=== PATIENT | female | born 2000 | race Caucasian/White ===

== ENCOUNTER 2019-04-16 22:29 | Emergency (ER) | payer MEDICAID, OTHER ==
[~2019-04-16] VITALS: Ht 152.4 cm; Wt 46.4 kg
[2019-04-16 22:56] VITALS: Ht 152.4 cm; Wt 46.4 kg
[2019-04-17] MEDS ORDERED: LIDOCAINE/MYLANTA 40 ML BTL PO STA (01:06)
[2019-04-17] MEDS ORDERED: morphine 4 MG/ML VIAL IV STA (01:06)
[2019-04-17] MEDS ORDERED: SOD CHLORIDE 0.9% 1,000 ML IV STA (01:06)
[2019-04-17] MEDS ORDERED: KETOROLAC 15 MG INJ IV STA (01:06)
[2019-04-17] MEDS ORDERED: SOD CHLORIDE 0.9% 100 ML ONE (02:52)
[2019-04-17] MEDS ORDERED: IOHEXOL 300MG/ML 150 ML BTL ONE (02:52)
[2019-04-17] MEDS ORDERED: IBUP-1561 PO (03:31)
[2019-04-17 03:39] VITALS: BP 117/70; PULSE 87; RESP 18
--- NOTE | 2019-04-17 05:33 | ERD ---
ER Documentation Chief Complaint Chief Complaint AP with nausea since Monday HPI 19-year-old female presents to the emergency department complaining of right lower quadrant and right suprapubic pain for the past 5 days. Symptoms are intermittent and rated 5/10 in severity. Associated symptoms include nausea. Patient denies any fevers, diarrhea, vomiting, or other symptoms at this time. ROS All systems reviewed and are negative except as per history of present illness. Medications Home Meds Active Scripts Ibuprofen* (Motrin*) 400 Mg Tab, 400 MG PO Q6, #30 TAB Prov:SARAHY SINGH PA-C 04/17/19 Allergies Allergies: Coded Allergies: No Known Allergy (Unverified , 04/16/19) PMhx/Soc Medical and Surgical Hx: pt denies Medical Hx, pt denies Surgical Hx Hx Alcohol Use: No Hx Substance Use: No Hx Tobacco Use: No FmHx Family History: No diabetes Physical Exam Vitals Vital Signs Date Temp Pulse Resp B/P (MAP) Pulse Ox O2 O2 Flow FiO2 Time Delivery Rate 04/17/19 98.8 87 18 117/70 99 Room Air 03:39 (86) 04/16/19 99.5 95 16 144/88 98 22:56 (106) Physical Exam Const: No acute distress Head: Atraumatic Eyes: Normal Conjunctiva ENT: Normal External Ears, Nose and Mouth. Neck: Full range of motion. No meningismus. Resp: Clear to auscultation bilaterally Cardio: Regular rate and rhythm, no murmurs Abd: Soft, mild tenderness palpation of the right lower quadrant in the right suprapubic region, negative Westfall sign, no rebound tenderness or guarding, non distended. Normal bowel sounds Skin: No petechiae or rashes Ext: No cyanosis, or edema Neur: Awake and alert Psych: Normal Mood and Affect Result Diagram: 04/17/19 0130 04/17/19 0130 Results 24 hrs Laboratory Tests Test 04/17/19 01:30 04/17/19 01:40 White Blood Count 12.8 10^3/ul Red Blood Count 5.27 10^6/ul Hemoglobin 14.8 g/dl Hematocrit 43.4 % Mean Corpuscular Volume 82.4 fl Mean Corpuscular Hemoglobin 28.1 pg Mean Corpuscular Hemoglobin Concent 34.1 g/dl Red Cell Distribution Width 11.9 % Platelet Count 223 10^3/UL Mean Platelet Volume 9.9 fl Immature Granulocytes % 0.400 % Neutrophils % 75.0 % Lymphocytes % 19.1 % Monocytes % 5.1 % Eosinophils % 0.2 % Basophils % 0.2 % Nucleated Red Blood Cells % 0.0 /100WBC Immature Granulocytes # 0.050 10^3/ul Neutrophils # 9.6 10^3/ul Lymphocytes # 2.5 10^3/ul Monocytes # 0.7 10^3/ul Eosinophils # 0.0 10^3/ul Basophils # 0.0 10^3/ul Nucleated Red Blood Cells # 0.0 10^3/ul Prothrombin Time 13.3 Sec Prothrombin Time Ratio 1.0 INR International Normalized Ratio 1.00 Activated Partial Thromboplast Time 31.5 Sec Urine Color YELLOW Urine Clarity SLIGHTLY CLOUDY Urine pH 6.0 Urine Specific [place] 1.033 Urine Ketones 2+ mg/dL Urine Nitrite NEGATIVE mg/dL Urine Bilirubin NEGATIVE mg/dL Urine Urobilinogen 1+ mg/dL Urine Leukocyte Esterase NEGATIVE Mukesh/ul Urine Microscopic RBC 3 /HPF Urine Microscopic WBC 1 /HPF Urine Squamous Epithelial Cells FEW /HPF Urine Mucus MANY /HPF Urine Hemoglobin NEGATIVE mg/dL Urine Glucose NEGATIVE mg/dL Urine Total Protein 1+ mg/dl Sodium Level 143 mmol/L Potassium Level 3.5 mmol/L Chloride Level 106 mmol/L Carbon Dioxide Level 24 mmol/L Anion Gap 13 Blood Urea Nitrogen 12 mg/dl Creatinine 0.58 mg/dl Est Glomerular Filtrat Rate mL/min > 60 mL/min Glucose Level 88 mg/dl Calcium Level 9.7 mg/dl Total Bilirubin 1.6 mg/dl Direct Bilirubin 0.00 mg/dl Indirect Bilirubin 1.6 mg/dl Aspartate Amino Transf (AST/SGOT) 18 IU/L Alanine Aminotransferase (ALT/SGPT) 16 IU/L Alkaline Phosphatase 64 IU/L Total Protein 8.5 g/dl Albumin 5.0 g/dl Globulin 3.50 g/dl Albumin/Globulin Ratio 1.42 Lipase 93 U/L POC Beta HCG, Qualitative NEGATIVE Current Medications Medications Dose Sig/Errol Start Time Status Last (Trade) Ordered Route PRN Stop Time Admin Dose Reason Admin Sodium 1,000 ml @ Q1H STAT 04/17/19 DC 04/17/19 Chloride 1,000 mls/hr IV 01:06 04/17/19 01:40 02:05 Morphine 4 mg ONCE STAT 04/17/19 DC Sulfate IV 01:06 04/17/19 (morphine) 01:08 40 ml ONCE STAT 04/17/19 DC Miscellaneous PO 01:06 04/17/19 Medication 01:08 (Gi Cocktail (2)) Ketorolac 15 mg ONCE STAT 04/17/19 DC Tromethamine IV 01:06 04/17/19 (Toradol) 01:08 Sodium 100 ml @ ud STK-MED 04/17/19 DC 04/17/19 Chloride ONCE .ROUTE 02:52 04/17/19 02:54 02:53 Iohexol 150 ml STK-MED 04/17/19 DC 04/17/19 (Omnipaque ONCE .ROUTE 02:52 04/17/19 02:54 300mg/ ml) 02:53 [place] [address] Radiology Main Line: [phone] DIAGNOSTIC IMAGING REPORT Patient: CHANDAN LAZO : 2000 Age: 19 Sex: F MR #: [id number] DOS: 04/17/19 0106 Ordering MD: SARAHY SINGH PA-C Location: [facility] Room/Bed: PROCEDURE: CT ABDOMEN AND PELVIS WITH INTRAVENOUS CONTRAST CLINICAL INDICATION: Abdominal pain. TECHNIQUE: Contiguous axial imaging was performed through the abdomen and pelvis with 100 cc of Omnipaque-300 intravenous contrast. Coronal and sagittal reformatting was utilized. DICOM images are available. Lack of oral contrast causes limitation of the gastrointestinal tract. CTDIvol: 4.74 mGy mGy. Total Exam DLP: 241.26 mGy.cm mGy-cm. This CT exam was performed using one or more of the following dose reduction techniques: Automated exposure control, adjustment of the mA and/or kV according to patient size, use of iterative reconstruction technique. COMPARISON: None. FINDINGS: VISUALIZED LUNG BASES: Appear clear. VISUALIZED HEART: Normal in size. LIVER: Unremarkable. SPLEEN: Unremarkable. PANCREAS: Unremarkable. GALLBLADDER: Unremarkable. ADRENAL GLANDS: Unremarkable. RIGHT KIDNEY: Unremarkable. LEFT KIDNEY: Unremarkable. ADENOPATHY: None. A couple of sub centimeter short axis right lower quadrant and pericaval lymph nodes suggest prior granulomatous disease or other dystrophic calcification. VASCULATURE: Retroaortic left renal vein is noted. GI TRACT: There is no bowel dilatation to suggest obstruction. No inflammatory changes of the bowel are appreciated. APPENDIX: Unremarkable. PELVIC STRUCTURES: 3.5 x 2.9 cm right ovarian cyst is noted. OTHER SOFT TISSUES: Unremarkable. OSSEOUS STRUCTURES: Unremarkable. IMPRESSION: 1. 3.5 x 2.5 cm right ovarian cyst. Follow-up imaging is not necessarily indicated. 2. No other acute abnormalities are appreciated. RPTAT:HGST Katie Melo Physician Date Time Electronically viewed and signed by Katie Melo Physician on 04/17/2019 03:27 GT/ CC: SARAHY SINGH PA-C [id number] Procedures/MDM 19-year-old female presents to the emergency department complaining of right lower quadrant and right suprapubic pain. Patient was administered IV Toradol in the department with good response. She was improved prior to discharge. CBC: no e/o of systemic infection or severe anemia CMP: no e/o severe acidosis, alkalosis, renal failure, diabetic ketoacidosis, liver disease Lipase: no e/o pancreatitis PT/INR: normal coagulation Urine: no e/o acute infection or hematuria CT abdomen and pelvis with IV contrast: Right-sided ovarian cyst. The full report interpreted by the radiologist may be viewed above. Medical decision making: Symptoms likely secondary to right-sided ovarian cyst without evidence of ovarian torsion. Patient is appropriate for discharge and further outpatient management with prescription for ibuprofen. Close DIRECTOR BUSINESS TRAVEL follow-up was advised. Patient's gastrointestinal symptoms have stabilized while in the department. No evidence of severe dehydration, sepsis, or surgical abdomen. Extensive discussion with family and patient that occult disease cannot be ruled out. 8 hour recheck for repeat abdominal exam is planned. Departure Diagnosis: Primary Impression: Right ovarian cyst Condition: Fair Patient Instructions: What Are Ovarian Cysts? Referrals: COMMUNITY CLINICS YOU HAVE RECEIVED A MEDICAL SCREENING EXAM AND THE RESULTS INDICATE THAT YOU DO NOT HAVE A CONDITION THAT REQUIRES URGENT TREATMENT IN THE EMERGENCY DEPARTMENT. FURTHER EVALUATION AND TREATMENT OF YOUR CONDITION CAN WAIT UNTIL YOU ARE SEEN IN YOUR DOCTORS OFFICE WITHIN THE NEXT 1-2 DAYS. IT IS YOUR RESPONSIBILITY TO MAKE AN APPOINTMENT FOR [facility] CARE. IF YOU HAVE A PRIMARY DOCTOR --you should call your primary doctor and schedule an appointment IF YOU DO NOT HAVE A PRIMARY DOCTOR YOU CAN CALL OUR PHYSICIAN REFERRAL HOTLINE AT IF YOU CAN NOT AFFORD TO SEE A PHYSICIAN YOU CAN CHOSE FROM THE FOLLOWING [facility] CLINICS [facility] [address] [facility] [address] [facility]. [facility] [address] [facility] [phone] [facility] [facility] [address] [facility]. [facility] [address] T[place]MA SEVERINO DIRECTOR BUSINESS TRAVEL REFERRAL [place] [address] [facility] [address] [place], [place] [id number] OFFICE FAX SOLO CHAN [address] [place], [place] [id number] [facility]MANFORM[facility]LY [facility] [address] [place], [place] [id number] SHARON WOODSPAIGE [address] [facility], [address] [address] [address] [address] [place], [place] [phone] [facility] [address] [place] [address] [phone] [facility] [address] - [place] K[place] [address], [facility] [address] [address] CARMONA, NATHANIEL [address], [facility] [address] [address], [place] [id number] [place] [address] Additional Instructions: SPECIALIST: YOU HAVE A MEDICAL CONDITION WHICH REQUIRES YOU TO SEE A SPECIALIST WITHIN THE NEXT 1-2 DAYS. PLEASE FOLLOW UP WITH YOUR PRIMARY PHYS ICIAN FOR REFFERAL.IF YOU DO NOT HAVE A PRIMARY CARE PHYSICIAN AND/OR YOU CAN NOT AFFORD TO SEE A PHYSICIAN THE FOLLOWING RESOURCES HAVE BEEN SUPPLIED TO YOU. IT IS YOUR RESPONSIBILITY TO BE SEEN BY THE SPECIALIST: SARAHY SCOTT PA-C Apr 17, 2019 05:33
== END 2019-04-17 03:41 | disposition home or self-care (01) ==
LOC: FTE 22:29
DX: N83.201 Unspecified ovarian cyst, right side (principal)
CPT/HCPCS: 36415; 74177; 80053; 81001; 81025; 83690; 85025; 85610; 85730; 96360; 96361; 99285; J7030; Q9967